=== PATIENT | male | born 1990 | race Caucasian/White ===

== ENCOUNTER 2018-12-01 20:10 | Emergency (ER) | payer OTHER ==
[~2018-12-01] VITALS: Ht 185.4 cm; Wt 93.0 kg
[2018-12-01] MEDS ORDERED: POTASSIUM CHLORIDE 10MEQ EA PO ONE (21:15)
== END 2018-12-01 21:24 | disposition home or self-care (01) ==
LOC: FSED 20:10
DX: I10 Essential (primary) hypertension (principal); E87.6 Hypokalemia; K52.9 Noninfective gastroenteritis and colitis, unspecified
CPT/HCPCS: 80053; 84484; 85025; 93005; 99283